=== PATIENT | female | born 1970 | race Caucasian/White ===

== ENCOUNTER → 2018-04-27 13:50 | Outpatient (CLI) | payer OTHER, SELFPAY | PROVIDERS: PCP Family Medicine; Visit Provider Family Medicine | DX: G56.00 Carpal tunnel syndrome, unspecified upper limb (principal) | CPT/HCPCS: 95886; 95911 ==

== ENCOUNTER → 2018-07-18 15:35 | Outpatient (CLI) | payer OTHER, SELFPAY ==
--- NOTE | 2018-07-18 | DI.MG.S_ITS ---
BILATERAL DIGITAL SCREENING MAMMOGRAM 3D/2D WITH CAD: 07/18/2018 CLINICAL: Routine screening. Family history of breast cancer. Comparison is made to exams dated: 05/09/2017 mammogram, 05/06/2016 mammogram, and 04/29/2016 mammogram - [facility]. The tissue of both breasts is heterogeneously dense. This may lower the sensitivity of mammography. Current study was also evaluated with a Computer Aided Detection (CAD) system. No significant masses, calcifications, or other findings are seen in either breast. There has been no significant interval change. IMPRESSION: NEGATIVE There is no mammographic evidence of malignancy. A 1 year screening mammogram is recommended. This exam was interpreted at Station ID: [id number]. NOTE: For mammograms, a report in lay terms will be sent to the patient. Approximately 15% of breast malignancies will not be visualized mammographically. In the management of a palpable breast mass, a negative mammogram must not discourage biopsy of a clinically suspicious lesion. Electronically Signed By: Maria Eugenia orona/inga:07/19/2018 10:41:00 copy to: Cameron Barrera letter sent: Normal Exam ACR BI-RADS Category 1: Negative 3341F
== END ==
PROVIDERS: PCP Family Medicine; Visit Provider Nurse Practitioner Family
DX: Z12.31 Encounter for screening mammogram for malignant neoplasm of breast (principal); Z80.3 Family history of malignant neoplasm of breast
CPT/HCPCS: 77063; 77067

== ENCOUNTER → 2019-01-30 13:09 | Outpatient (CLI) | payer OTHER, SELFPAY | PROVIDERS: PCP Family Medicine; Visit Provider Family Medicine | DX: R22.0 Localized swelling, mass and lump, head (principal) | CPT/HCPCS: 36415; 83520; 86160 ==

== ENCOUNTER → 2019-03-26 09:07 | Outpatient (CLI) | payer OTHER, SELFPAY ==
--- NOTE | 2019-03-26 | DI.MRI.S_ITS ---
PROCEDURE: MR HEAD/BRAIN WO/W CON INDICATIONS: Unspecified speech disturbances TECHNIQUE: Noncontrast axial T1 spin echo, axial T2 fast spin echo, sagittal and axial FLAIR, coronal T2 fast spin echo, axial gradient echo, axial diffusion and ADC through the brain. After the administration of contrast, axial and coronal 3D VIBE or T1 spin echo with fat saturation through the brain. COMPARISON: None. FINDINGS: Image quality: Excellent. CSF Spaces: Basal cisterns are patent. No extra-axial fluid collections. Ventricles are normal in size and shape. Brain: No midline shift. No intracranial bleeds or masses. No abnormal intracranial enhancement. The brainstem appears normal. Diffusion-weighted images demonstrate no acute ischemic insults. No chronic ischemic insults. Normal intravascular flow voids are present. Skull and face: Calvarial marrow is normal in signal. Orbits appear normal. Sinuses: Sinuses and mastoids appear clear. IMPRESSION: Unremarkable examination. No abnormal enhancement. No evidence of acute ischemia. Dictated by: Omega Cruz M.D. on 03/26/2019 at 10:05 Approved by: Omega Cruz M.D. on 03/26/2019 at 10:08
== END ==
PROVIDERS: PCP Family Medicine; Visit Provider Family Medicine
DX: R47.9 Unspecified speech disturbances (principal); R27.9 Unspecified lack of coordination
CPT/HCPCS: 70553; A9579

== ENCOUNTER → 2020-07-05 13:34 | Outpatient (CLI) | payer OTHER, SELFPAY ==
--- NOTE | 2020-07-05 | DI.MG.S_ITS ---
BILATERAL DIGITAL SCREENING MAMMOGRAM 3D/2D WITH CAD: 07/05/2020 CLINICAL: Routine screening. Family history of breast cancer. Comparison is made to exams dated: 07/18/2018 mammogram, 05/09/2017 mammogram, 09/07/2016 mammogram, and 04/29/2016 mammogram - [facility]. There are scattered fibroglandular elements in both breasts. Current study was also evaluated with a Computer Aided Detection (CAD) system. No significant masses, calcifications, or other findings are seen in either breast. There has been no significant interval change. IMPRESSION: NEGATIVE There is no mammographic evidence of malignancy. A 1 year screening mammogram is recommended. This exam was interpreted at Station ID: [id number]. NOTE: For mammograms, a report in lay terms will be sent to the patient. Approximately 15% of breast malignancies will not be visualized mammographically. In the management of a palpable breast mass, a negative mammogram must not discourage biopsy of a clinically suspicious lesion. Electronically Signed By: Valente lloyd/inga:07/07/2020 11:27:24 copy to: Cameron Barrera letter sent: Normal Exam ACR BI-RADS Category 1: Negative 3341F
== END ==
PROVIDERS: PCP Family Medicine; Referring Provider Family Medicine; Visit Provider Family Medicine
DX: Z12.31 Encounter for screening mammogram for malignant neoplasm of breast (principal); Z80.3 Family history of malignant neoplasm of breast
CPT/HCPCS: 77063; 77067

== ENCOUNTER → 2020-12-01 14:18 | Outpatient (CLI) | payer OTHER, SELFPAY ==
[2020-12-01] MEDS: COVID-19 VACC, Ad26(JANSSEN)/PF 0.5 ML IM (14:29)
== END ==
PROVIDERS: Visit Provider Internal Medicine
DX: Z23 Encounter for immunization (principal)
CPT/HCPCS: 0031A; 91303

== ENCOUNTER → 2021-08-21 17:34 | Outpatient (CLI) | payer OTHER, SELFPAY ==
--- NOTE | 2021-08-21 17:37 | DI.MG.S_ITS ---
BILATERAL DIGITAL SCREENING MAMMOGRAM 3D/2D WITH CAD: 08/21/2021 CLINICAL: Routine screening. Family history of breast cancer. Comparison is made to exams dated: 07/05/2020 mammogram, 07/18/2018 mammogram, and 05/09/2017 mammogram - [facility]. There are scattered fibroglandular elements in both breasts. Current study was also evaluated with a Computer Aided Detection (CAD) system. No significant masses, calcifications, or other findings are seen in either breast. There has been no significant interval change. IMPRESSION: NEGATIVE There is no mammographic evidence of malignancy. A 1 year screening mammogram is recommended. This exam was interpreted at Station ID: [id number]. NOTE: For mammograms, a report in lay terms will be sent to the patient. Approximately 15% of breast malignancies will not be visualized mammographically. In the management of a palpable breast mass, a negative mammogram must not discourage biopsy of a clinically suspicious lesion. Electronically Signed By: Paramjit Washington M.D., jr/inga:08/24/2021 09:14:01 copy to: Cameron Barrera letter sent: Normal Exam ACR BI-RADS Category 1: Negative 3341F
== END ==
PROVIDERS: PCP Family Medicine; Referring Provider Family Medicine; Visit Provider Family Medicine
DX: Z12.31 Encounter for screening mammogram for malignant neoplasm of breast (principal); Z80.3 Family history of malignant neoplasm of breast
CPT/HCPCS: 77063; 77067

== ENCOUNTER → 2022-10-16 10:50 | Outpatient (CLI) | payer OTHER, SELFPAY ==
--- NOTE | 2022-10-16 | DI.MG.S_ITS ---
BILATERAL DIGITAL SCREENING MAMMOGRAM 3D/2D WITH CAD: 10/16/2022 CLINICAL: Routine screening. Family history of breast cancer. Comparison is made to exams dated: 08/21/2021 mammogram, 07/05/2020 mammogram, and 07/18/2018 mammogram - [facility]. There are scattered areas of fibroglandular density in both breasts (category b / 25%-50% glandular tissue). Current study was also evaluated with a Computer Aided Detection (CAD) system. No significant masses, calcifications, or other findings are seen in either breast. There has been no significant interval change. IMPRESSION: NEGATIVE There is no mammographic evidence of malignancy. A 1 year screening mammogram is recommended. Based on the Tyrer Cuzick model (a risk assessment model) the patient's lifetime risk is 12.7% and her 10 year risk is 3.2%. According to the ACR, ACS, and NCCN guidelines, an annual breast MRI exam along with mammogram is recommended if the patient's lifetime risk is 20% or greater. This exam was interpreted at Station ID: [id number]. NOTE: For mammograms, a report in lay terms will be sent to the patient. Approximately 15% of breast malignancies will not be visualized mammographically. In the management of a palpable breast mass, a negative mammogram must not discourage biopsy of a clinically suspicious lesion. Electronically Signed By: Suyra estrada/inga:10/18/2022 02:12:47 copy to: Cameron Barrera letter sent: Normal Exam ACR BI-RADS Category 1: Negative 3341F
== END ==
PROVIDERS: PCP Family Medicine; Referring Provider Family Medicine; Visit Provider Family Medicine
DX: Z12.31 Encounter for screening mammogram for malignant neoplasm of breast (principal); Z80.3 Family history of malignant neoplasm of breast
CPT/HCPCS: 77063; 77067

== ENCOUNTER → 2023-11-12 12:58 | Outpatient (CLI) | payer OTHER, SELFPAY ==
--- NOTE | 2023-11-12 12:59 | DI.MG.S_ITS ---
BILATERAL DIGITAL SCREENING MAMMOGRAM 3D/2D WITH CAD: 11/12/2023 CLINICAL: Routine screening. Family history of breast cancer. Comparison is made to exams dated: 10/16/2022 mammogram, 08/21/2021 mammogram, and 07/05/2020 mammogram - [facility]. There are scattered areas of fibroglandular density in both breasts (category b / 25%-50% glandular tissue). Current study was also evaluated with a Computer Aided Detection (CAD) system. There are stable post surgical changes from bilateral reduction mammoplasty. No other significant masses, calcifications, or other findings are seen in either breast. IMPRESSION: BENIGN Status post bilateral reduction mammoplasty. No mammographic evidence of malignancy. A 1 year screening mammogram is recommended. Based on the Tyrer Cuzick model (a risk assessment model) the patient's lifetime risk is 12.6% and her 10 year risk is 3.3%. According to the ACR, ACS, and NCCN guidelines, an annual breast MRI exam along with mammogram is recommended if the patient's lifetime risk is 20% or greater. This exam was interpreted at Station ID: [id number]. NOTE: For mammograms, a report in lay terms will be sent to the patient. Approximately 15% of breast malignancies will not be visualized mammographically. In the management of a palpable breast mass, a negative mammogram must not discourage biopsy of a clinically suspicious lesion. Electronically Signed By: Rola De M.D., PH.D eb/:11/14/2023 10:40:14 copy to: Cameron Barrera letter sent: Normal Exam ACR BI-RADS Category 2: Benign Finding(s) 3342F
== END ==
LOC: MAMMO 12:58
PROVIDERS: PCP Family Medicine; Referring Provider Family Medicine; Visit Provider Family Medicine
DX: Z12.31 Encounter for screening mammogram for malignant neoplasm of breast (principal); Z80.3 Family history of malignant neoplasm of breast; R92.323 Mammographic fibroglandular density, bilateral breasts
CPT/HCPCS: 77063; 77067

== ENCOUNTER → 2024-02-10 10:48 | Outpatient (CLI) | payer OTHER, SELFPAY ==
--- NOTE | 2024-02-10 10:49 | DI.MRI.S_ITS ---
PROCEDURE: MR HEAD/BRAIN WO/W CON INDICATIONS: Other abnormalities of gait and mobility TECHNIQUE: Noncontrast axial T1 spin echo, axial T2 fast spin echo, sagittal and axial FLAIR, coronal T2 fast spin echo, axial gradient echo, axial diffusion and ADC through the brain. After the administration of contrast, axial and coronal and sagittal 3D VIBE or T1 spin echo with fat saturation through the brain. COMPARISON: [facility], MR, MR HEAD/BRAIN WO/W CON, 03/26/2019, 9:16. FINDINGS: Image quality: Excellent. CSF Spaces: Basal cisterns are patent. No extra-axial fluid collections. Ventricles are normal in size and shape except at the 4th ventricle which is chronically enlarged associated with previously identified and documented prominent cerebellar atrophy. Associated brainstem and upper cervical cord calibers are diminished, not worsened from the prior study 03/26/19.. Brain: No midline shift. No intracranial bleeds or masses. No abnormal intracranial enhancement. The brainstem appears at the lower limits of normal in caliber, as was previously the case. Diffusion-weighted images demonstrate no acute infarct. No chronic ischemic insults. Normal intravascular flow voids are present. The contrast-enhanced portion of the study shows no abnormal enhancement or vascular abnormality. Skull and face: Calvarial marrow is normal in signal. Orbits appear normal. Sinuses: Sinuses and mastoids appear clear. IMPRESSION: Chronic moderately prominent cerebellar and brainstem atrophy, without encephalomalacia focally. The appearance was previously documented in March of 2019 by a similar MRI without and with contrast, and has remained stable in appearance over time. Dictated by: Satish Delgado M.D. on 02/10/2024 at 13:14 Approved by: Satish Delgado M.D. on 02/10/2024 at 13:20
== END ==
PROVIDERS: Family Provider Family Medicine; PCP Family Medicine; Referring Provider Family Medicine; Visit Provider Family Medicine
DX: G31.9 Degenerative disease of nervous system, unspecified (principal); R26.89 Other abnormalities of gait and mobility; R47.9 Unspecified speech disturbances; R47.1 Dysarthria and anarthria
CPT/HCPCS: 70553; A9579

== ENCOUNTER 2024-08-08 17:00 | Outpatient (RCR) | payer OTHER, SELFPAY ==
--- NOTE | 2024-04-25 16:52 | ST.OPIE ---
Visit Care Team Role Provider Type Dipak Ravi MD Attending Provider Physician Family Provider Primary Care Provider Referring Provider Specialty: Family Practice Address: [address], [place], [address] Email: [email or web address] Speech-Language Pathology Initial Evaluation FICTION AND NONFICTION AUTHOR Adult Cognitive Linguistic Eval Start: 04/25/24 10:33 Freq: Status: Active Protocol: Document 04/25/24 10:34 MA (Rec: 04/25/24 10:36 JANINE [id number]) Adult Cognitive Linguistic Evaluation Session Time Visit Start Time 10:25 Visit Stop Time 11:05 Total Visit Minutes 40 Visit Information Visit Number Initial Eval Plan of Care Dates 04/25/24-07/26/24 Insurance Information Jacob Referral Referring Provider Dr. Ravi Reason for Referral Dysarthria Setting Assessment Location Outpatient Care Visit Type Note Type Initial evaluation Next Note Type Next Note Type Treatment Note Patient Information Identification Type Name Patient History Pt is a 53 year old female seen this date for speech evaluation d/t dx of dysarthria, which she states was dx about 4-5 years ago. She states she had a MRI completed in 2019, which revealed cerebellar atrophy, however has stabalized since then and has not changed. She reports onset of slurred speech began in 2019, however has not gotten worse. She states stress causes it to be worse. Yemeni is her first language, however she also speaks Somali and Togolese. She states no known cause for dysarthria and has had several tests done. She reports her brother was tested and it was found he has a small cerebellum with associated fine motor control issues. 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 She reports when she was to conduct big meetings she feels more pressure and more stress which causes morer slurring. She states nobody has told her they can't understand her, however have noticed the slurred speech. She lives alone and states when she isn't at work she communicates primarily through text or email. She reports her dad of Parkinson's disease, however that has been ruled out. She reports the slurred speech has cuased her to become more withdrawn and quiet. She denies any other past medical hx. She reports hx of anxiety, however has increased the past few months, which she thinks might be a side effect from taking Ozempic. Occupation Status Highschool psychologist Hearing Hearing Level Normal Vision Vision Status Impaired Comments Wears glasses Previous Therapy Previous Speech-Language Therapy No Assessment Oral Motor Examination Completed Yes Results Generalized labial and lingual weakness and reduced ROM. However, Pt is about 100% intelligible with occasional words difficult to understand given misarticulations. Informal Assessment Receptive Language Normal Yes Expressive Language Normal Yes Pragmatic Language Normal Yes Speech Normal No Speech Impairment(s) Imprecise articulation,Fast speech rate,Poor breath support Cognition Normal Yes Formal Assessment Results ST administered the Voice Handicap Index-10 (VHI) and cued Pt to change the word voice to speech and pertain the questionnaire to her speech deficits. Pt scored the following: Functional: 19 Physical: 15 Emotional: 17 Total: 51 Score of 51 indicates a severity rating of moderate, which is the level at which she feels her speech effects her daily life. FICTION AND NONFICTION AUTHOR Motor Speech Evaluation Start: 04/25/24 11:13 Freq: Status: Active Protocol: Document 04/25/24 11:13 JANINE (Rec: 04/25/24 11:14 JANINE [id number]) Motor Speech Evaluation Session Time Visit Start Time 10:25 Visit Stop Time 11:05 Total Visit Minutes 40 Visit Information Visit Number Initial Eval Plan of Care Dates 04/25/24-07/26/24 Insurance Information Jacob Setting Setting Outpatient Care Next Note Type Next Note Type Treatment Note Patient History Source: [employer] ([facility]). Patient History Pt is a 53 year old female seen this date for speech evaluation d/t dx of dysarthria, which she states was dx about 4-5 years ago. She states she had a MRI completed in 2019, which revealed cerebellar atrophy, however has stabalized since then and has not changed. She reports onset of slurred speech began in 2019, however has not gotten worse. She states stress causes it to be worse. Yemeni is her first language, however she also speaks Somali and Togolese. She states no known cause for dysarthria and has had several tests done. She reports her brother was tested and it was found he has a small cerebellum with associated fine motor control issues. 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 She reports when she was to conduct big meetings she feels more pressure and more stress which causes morer slurring. She states nobody has told her they can't understand her, however have noticed the slurred speech. She lives alone and states when she isn't at work she communicates primarily through text or email. She reports her dad of Parkinson's disease, however that has been ruled out. She reports the slurred speech has cuased her to become more withdrawn and quiet. She denies any other past medical hx. She reports hx of anxiety, however has increased the past few months, which she thinks might be a side effect from taking Ozempic. Referral Referring Physician Dr. Ravi Reason for Referral Dysarthria Mental Status Mental Status Alert,Responsive,Cooperative Oral Motor Lips Function Mild Impairment Tongue Function Mild Impairment Jaw Function WFL Respiration/Phonation Tools Observations Pt reports occasionally running out of breath when speaking Conversation Function Mildly Impaired Loudness WFL Diadochokinetic Rates Speech Intelligibility Phoneme Severity WFL Word Severity WFL Sentence Severity WFL Conversation Severity Mildly Impaired Awareness/Strategy Use Description Type of awareness/use Uses intermittently Findings Details Motor Speech Function Mild Impairment Type of Impairment Dysarthria Assessment Details Assessment ST administered the Voice Handicap Index-10 (VHI) and cued Pt to change the word voice to speech and pertain the questionnaire to her speech deficits. Pt scored the following: Functional: 19 Physical: 15 Emotional: 17 Total: 51 Score of 51 indicates a severity rating of moderate, which is the level at which she feels her speech effects her daily life. Pt appears about 100% intelligible at the conversation level, however speech is characterized by slurred speech with misarticulations. She reports she tries to slow down and over enunciate but needs to do it more, as well as taking breaths while talking. She reports she would like to learn and practice utilizing speaking compensatory strategies. Prognosis Rehabilitation Potential Excellent Recommendations Treatment Recommended Yes Frequency 1x/week Duration 3 months Therapy Recommendations Oral motor exercises, dysarthriai speaking strategies Short Term Goals STG 1: Pt will participate in oral motor speech tasks to improve lingual and labial strength, ROM and motility for articulation with min cues. STG 2: Pt will utilize compensatory strategies of reduced rate, over articulation, and increased loudness with min cues. Snf Goals LTG1 Pt will improve intelligibility of speech for functional communication. Patient/Family Education Education Described results of evaluation,Patient Understanding
--- NOTE | 2024-04-25 16:52 | ST.OPPOC ---
Physical, Occupational & Speech Therapy At [facility] Visit Care Team Role Provider Type Dipak Ravi MD Attending Provider Physician Family Provider Primary Care Provider Referring Provider Address: [address], [place], [address] Speech Pathology Plan of Care Plan of Care Dates 04/25/24-07/26/[address] Ravi Patient History Pt is a 53 year old female seen this date for speech evaluation d/t dx of dysarthria, which she states was dx about 4-5 years ago. She states she had a MRI completed in 2019, which revealed cerebellar atrophy, however has stabalized since then and has not changed. She reports onset of slurred speech began in 2019, however has not gotten worse. She states stress causes it to be worse. Bruneian is her first language, however she also speaks Maltese and Romanian. She states no known cause for dysarthria and has had several tests done. She reports her brother was tested and it was found he has a small cerebellum with associated fine motor control issues. 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 She reports when she was to conduct big meetings she feels more pressure and more stress which causes morer slurring. She states nobody has told her they can't understand her, however have noticed the slurred speech. She lives alone and states when she isn't at work she communicates primarily through text or email. She reports her dad of Parkinson's disease, however that has been ruled out. She reports the slurred speech has cuased her to become more withdrawn and quiet. She denies any other past medical hx. She reports hx of anxiety , however has increased the past few months, which she thinks might be a side effect from taking Ozempic. Short Term Goals STG 1: Pt will participate in oral motor speech tasks to improve lingual and labial strength, ROM and motility for articulation with min cues. STG 2: Pt will utilize compensatory strategies of reduced rate, over articulation, and increased loudness with min cues. Grizzly Worker Goals LTG1 Pt will improve intelligibility of speech for functional communication. Comment: Electronically Signed by: ADRIEL Colindres 04/25/24 [id number] If you are in agreement with this Plan of Care, please return a signed and dated copy. I have reviewed this Plan of Care and certify that the skilled therapy services above are required to meet the patient?s needs. Physician Signature Date Printed Name and Credentials Clinical Instructor Signature Printed Name and Credentials
--- NOTE | 2024-05-02 11:06 | ST.OPTN ---
Visit Care Team Role Provider Type Dipak Ravi MD Attending Provider Physician Family Provider Primary Care Provider Referring Provider Address: [address], [place], [address] NUCLEAR MONITORING TECHNICIAN Treatment Note NUCLEAR MONITORING TECHNICIAN Treatment Note Start: 05/02/24 10:52 Freq: Status: Active Protocol: Document 05/02/24 10:53 JANINE (Rec: 05/02/24 11:06 NM [id number]) Speech Pathology Treatment Note Session Time Visit Start Time 10:30 Visit Stop Time 11:00 Total Visit Minutes 30 Visit Information Visit Number 2 Plan of Care Dates 04/25/24-07/26/24 Setting Treatment Setting Outpatient Care Next Note Type Next Note Type Treatment Note General Information Patient History Pt is a 53 year old female seen this date for speech evaluation d/t dx of dysarthria, which she states was dx about 4-5 years ago. She states she had a MRI completed in 2019, which revealed cerebellar atrophy, however has stabalized since then and has not changed. She reports onset of slurred speech began in 2019, however has not gotten worse. She states stress causes it to be worse. Jamaican is her first language, however she also speaks Maori and Guatemalan. She states no known cause for dysarthria and has had several tests done. She reports her brother was tested and it was found he has a small cerebellum with associated fine motor control issues. 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 She reports when she was to conduct big meetings she feels more pressure and more stress which causes morer slurring. She states nobody has told her they can't understand her, however have noticed the slurred speech. She lives alone and states when she isn't at work she communicates primarily through text or email. She reports her dad of Parkinson's disease, however that has been ruled out. She reports the slurred speech has cuased her to become more withdrawn and quiet. She denies any other past medical hx. She reports hx of anxiety, however has increased the past few months, which she thinks might be a side effect from taking Ozempic. Subjective Observations/Patient Presentation Pt arrived to therapy on time with exercises. Objective Short Term Goals STG 1: Pt will participate in oral motor speech tasks to improve lingual and labial strength, ROM and motility for articulation with min cues. STG 2: Pt will utilize compensatory strategies of reduced rate, over articulation, and increased loudness with min cues. Correction Goals LTG1 Pt will improve intelligibility of speech for functional communication. Treatment Activities Oral motor exercises, speaking strategies Assessment Patient Response to Treatment Excellent Rehab Potential Excellent Impairments Identified Speech Progress Towards Goals Excellent Progress Assessment of Improvement Pt brought in exercises provided during last session, which included oral motor exericses and dysarthria speaking strategies. Pt reports a noticable change with her speech after doing oral motor exercises and says they seem to be really helping . She also states she has been focusing on utilizing the dysarthria speaking strategies more but will continue to practice. She states she benefits from over articulating and slowing rate of speech. ST facilitated conversation in regards to going forward in therapy. Pt reports she would like to come in once a month for a check in on her speech and completion of exercises. ST agrees and assisted Pt with scheduling once a month. ST recommends Pt continue oral motor exercises 2-3x/day 10x each and utilize dysarthria speaking strategies. Pt also requested ST write a letter to her HR department just stating why she is receiving speech therapy. ST to f/u with Pt in once month. Plan Provided Patient/Caregiver Instruction Home Exercise Program,Plan of Care,Questions/Concerns
--- NOTE | 2024-06-06 17:09 | ST.OPTN ---
Visit Care Team Role Provider Type Dipak Ravi MD Attending Provider Physician Family Provider Primary Care Provider Referring Provider Address: [address], [place], [address] 411 DIRECTORY ASSISTANCE OPERATOR Treatment Note 411 DIRECTORY ASSISTANCE OPERATOR Treatment Note Start: 05/02/24 10:52 Freq: Status: Active Protocol: Document 06/06/24 17:03 JANINE (Rec: 06/06/24 17:09 [place] [id number]) Speech Pathology Treatment Note Session Time Visit Start Time 16:45 Visit Stop Time 17:15 Total Visit Minutes 30 Visit Information Visit Number 3 Plan of Care Dates 04/25/24-07/26/24 Setting Treatment Setting Outpatient Care Next Note Type Next Note Type Treatment Note General Information Patient History Pt is a 53 year old female seen this date for speech evaluation d/t dx of dysarthria, which she states was dx about 4-5 years ago. She states she had a MRI completed in 2019, which revealed cerebellar atrophy, however has stabalized since then and has not changed. She reports onset of slurred speech began in 2019, however has not gotten worse. She states stress causes it to be worse. Cymraes is her first language, however she also speaks Kiswahili and Filipino. She states no known cause for dysarthria and has had several tests done. She reports her brother was tested and it was found he has a small cerebellum with associated fine motor control issues. 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 She reports when she was to conduct big meetings she feels more pressure and more stress which causes morer slurring. She states nobody has told her they can't understand her, however have noticed the slurred speech. She lives alone and states when she isn't at work she communicates primarily through text or email. She reports her dad of Parkinson's disease, however that has been ruled out. She reports the slurred speech has cuased her to become more withdrawn and quiet. She denies any other past medical hx. She reports hx of anxiety, however has increased the past few months, which she thinks might be a side effect from taking Ozempic. Subjective Observations/Patient Presentation Pt arrived to therapy on time. Objective Short Term Goals STG 1: Pt will participate in oral motor speech tasks to improve lingual and labial strength, ROM and motility for articulation with min cues. STG 2: Pt will utilize compensatory strategies of reduced rate, over articulation, and increased loudness with min cues. Garden Worker Goals LTG1 Pt will improve intelligibility of speech for functional communication. Treatment Activities Oral motor exercises, speaking strategies Assessment Patient Response to Treatment Excellent Rehab Potential Excellent Impairments Identified Speech Progress Towards Goals Excellent Progress Assessment of Improvement Pt reports she has been doing her oral motor exercises, however does not always remember to utilize speaking strategies. She states her speech is it's worse when she is stressed and rushing around at work. She reports most difficulties when communicating in front of a group during meetings. ST recommended Pt continue to utilize speaking strategies, such as over-articulation and slow rate and taking breaths when speaking for increased intelligibility. Pt appeared about 90-100% intelligible during session. ST also recommended she keep reminders of speaking strategies at her desk at work or on her phone to recall to use them. Pt reports she would like to come in once a month for a check in on her speech and completion of exercises. ST recommends Pt continue oral motor exercises 2-3x/day 10x each and utilize dysarthria speaking strategies. ST to f/ u with Pt in once month. Plan Provided Patient/Caregiver Instruction Home Exercise Program,Plan of Care,Questions/Concerns
--- NOTE | 2024-08-08 17:23 | ST.OPTN ---
Visit Care Team Role Provider Type Dipak Ravi MD Attending Provider Physician Family Provider Primary Care Provider Referring Provider Address: [address], [place], [address] SALES AND MERCHANDISING ASSOCIATE Treatment Note SALES AND MERCHANDISING ASSOCIATE Treatment Note Start: 05/02/24 10:52 Freq: Status: Active Protocol: Document 08/08/24 17:09 CT (Rec: 08/08/24 17:23 CT [id number]) Speech Pathology Treatment Note Session Time Visit Start Time 16:56 Visit Stop Time 17:20 Total Visit Minutes 24 Visit Information Visit Number 4 Plan of Care Dates 04/25/24-07/26/24 Setting Treatment Setting Outpatient Care Next Note Type Next Note Type Treatment Note General Information Patient History Pt is a 53 year old female seen this date for speech evaluation d/t dx of dysarthria, which she states was dx about 4-5 years ago. She states she had a MRI completed in 2019, which revealed cerebellar atrophy, however has stabalized since then and has not changed. She reports onset of slurred speech began in 2019, however has not gotten worse. She states stress causes it to be worse. Nicaraguan is her first language, however she also speaks Frisian and Marshallese. She states no known cause for dysarthria and has had several tests done. She reports her brother was tested and it was found he has a small cerebellum with associated fine motor control issues. 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 She reports when she was to conduct big meetings she feels more pressure and more stress which causes morer slurring. She states nobody has told her they can't understand her, however have noticed the slurred speech. She lives alone and states when she isn't at work she communicates primarily through text or email. She reports her dad of Parkinson's disease, however that has been ruled out. She reports the slurred speech has cuased her to become more withdrawn and quiet. She denies any other past medical hx. She reports hx of anxiety, however has increased the past few months, which she thinks might be a side effect from taking Ozempic. Subjective Observations/Patient Presentation Pt arrived to therapy on time. Objective Short Term Goals STG 1: Pt will participate in oral motor speech tasks to improve lingual and labial strength, ROM and motility for articulation with min cues.- MET STG 2: Pt will utilize compensatory strategies of reduced rate, over articulation, and increased loudness with min cues.- MET Retirement Goals LTG1 Pt will improve intelligibility of speech for functional communication. - MET Treatment Activities Dysarthria speaking strategies , conversation in regards to discharge from therapy Assessment Patient Response to Treatment Excellent Rehab Potential Excellent Impairments Identified Speech Progress Towards Goals Excellent Progress,Appropriate for Discharge Assessment of Improvement Pt reports she believes her speech has improved and has been utilizing speaking compensatory strategies, such as slowing down and over articulating. She states it doesn't bother her when people occasionally ask her to repeat herself. She reports decreased intelligibility when she is stressed, however also states that has improved. Pt reports she has also been doing oral motor exercises. ST recommends Pt be discharged from this date d/t Pt with reported improvements in speech and independent with use of compensatory strategies . ST recommended Pt return to therapy if changes in speech occur and to continue utilizing compensatory speaking strategies and completing oral motor exercises. Pt verbalized understanding. Reviewed with Patient Goals,Progress Being Made,Home Exercise Program Plan Frequency of Treatment No Further Therapy Provided Patient/Caregiver Instruction Home Exercise Program,Plan of Care,Questions/Concerns
--- NOTE | 2024-08-13 15:03 | ST.OPPOC ---
Physical, Occupational & Speech Therapy At [facility] Visit Care Team Role Provider Type Dipak Ravi MD Attending Provider Physician Family Provider Primary Care Provider Referring Provider Address: [address], [place], [address] Speech Pathology Plan of Care Plan of Care Dates 07/27/24-08/08/[address] Ravi Patient History Pt is a 53 year old female seen this date for speech evaluation d/t dx of dysarthria, which she states was dx about 4-5 years ago. She states she had a MRI completed in 2019, which revealed cerebellar atrophy, however has stabalized since then and has not changed. She reports onset of slurred speech began in 2019, however has not gotten worse. She states stress causes it to be worse. Kuwaiti is her first language, however she also speaks Slovenian and Yemeni. She states no known cause for dysarthria and has had several tests done. She reports her brother was tested and it was found he has a small cerebellum with associated fine motor control issues. 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 She reports when she was to conduct big meetings she feels more pressure and more stress which causes morer slurring. She states nobody has told her they can't understand her, however have noticed the slurred speech. She lives alone and states when she isn't at work she communicates primarily through text or email. She reports her dad of Parkinson's disease, however that has been ruled out. She reports the slurred speech has cuased her to become more withdrawn and quiet. She denies any other past medical hx. She reports hx of anxiety , however has increased the past few months, which she thinks might be a side effect from taking Ozempic. Impairments Identified Speech Progress Towards Goals Excellent Progress,Appropriate for Discharge Short Term Goals STG 1: Pt will participate in oral motor speech tasks to improve lingual and labial strength, ROM and motility for articulation with min cues. - MET STG 2: Pt will utilize compensatory strategies of reduced rate, over articulation, and increased loudness with min cues.- MET Detention Goals LTG1 Pt will improve intelligibility of speech for functional communication. - MET Comment: Electronically Signed by: ADRIEL Colindres 08/13/24 3824 If you are in agreement with this Plan of Care, please return a signed and dated copy. I have reviewed this Plan of Care and certify that the skilled therapy services above are required to meet the patient?s needs. Physician Signature Date Printed Name and Credentials Clinical Instructor Signature Printed Name and Credentials
== END 2024-09-03 13:38 | disposition home or self-care (01) ==
LOC: SP 17:00
PROVIDERS: Family Provider Family Medicine; PCP Family Medicine; Referring Provider Family Medicine; Visit Provider Family Medicine
DX: R47.1 Dysarthria and anarthria (principal); R47.9 Unspecified speech disturbances; G31.9 Degenerative disease of nervous system, unspecified; R26.89 Other abnormalities of gait and mobility
CPT/HCPCS: 92507; 92523

== ENCOUNTER 2024-10-11 09:02 | Day surgery (SDC) | payer OTHER, SELFPAY ==
[2024-10-11 09:25] VITALS: BP 127/76; PULSE 93; RESP 16; TEMP 36.4; O2SAT 95
--- NOTE | 2024-10-11 10:05 | PM.HP.IH.1 ---
History of Present Illness History of Present Illness Date Patient Seen: 10/11/24 Time Patient Seen: 10:05 Chief complaint: Colonoscopy Narrative: Lalitha is a 54-year-old woman here for colonoscopy. She has never had 1 before. No family history of colon cancer. [facility] Social History Smoking Status: Never smoker alcohol intake: current Meds Home Medications and Allergies Home Medications Medication Instructions Recorded Confirmed Type peg 3350-electrolytes 236 240 ml PO Q10M #4,000 mL 09/05/24 Rx gram-22.74 gram-6.74 gram-5.86 gram solution (Golytely) semaglutide (weight loss) 1 mg/0.5 1 mg SUBCUT 10/11/24 History mL subcutaneous pen injector Allergies Allergy/AdvReac Type Severity Reaction Status Date / Time No Known Drug Allergies Allergy Verified 10/11/24 09:23 Exam Vital Signs (past 8 hours): - 10/11/24 09:25 Temperature 97.5 F L Pulse Rate 93 H Respiratory Rate 16 Blood Pressure 127/76 Pulse Oximetry 95 Oxygen Delivery Method Room Air Oxygen Delivery Method Room Air Const General: No acute distress Resp Effort & Inspection: normal respiratory effort Assessment & Plan Assessment and plan (1) Colon cancer screening: Status: Acute Plan Colonoscopy Time-Based Coding :: [TOTAL MINUTES] spent with patient and on the chart (including review of chart, obtaining history, exam, reviewing outside data, placing orders, documenting exam and treatment plan, and counseling patient) on [DATE]. PROFEE Direct Service Provider Document charge(s): No
[2024-10-11 10:50] VITALS: BP 110/54; PULSE 97; RESP 12; TEMP 36.2; O2SAT 99
--- NOTE | 2024-10-11 10:52 | PM.OP.COLON ---
Operative Date/Time/Diagnoses Date of procedure: 10/11/24 Time of procedure: 10:52 Pre-op diagnosis: Colon cancer screening Post-op diagnosis: same Procedure & Clinicians Study performed: Colonoscopy Same procedure as scheduled: Yes Surgeon: Brady Katz Procedure Notes Procedure in detail: Surgeon: Brady Katz MD Anesthesia: Bria Vieira MD Procedure: The patient was brought to the endoscopy suite, placed in left lateral decubitus position. The patient was connected to monitoring devices. A time-out was performed. Sedation was administered. Once the patient was adequately sedated, a digital rectal exam was performed and was normal. The scope was then inserted and advanced to the cecum where the appendiceal orifice was identified and photographed. The scope was then slowly withdrawn over greater than 6 minutes. The mucosa was thoroughly inspected. No abnormalities were found. The scope was retroflexed in the rectum. The scope was straightened and removed. The patient was awakened and brought to recovery. Scope withdrawal time: 6 minute Sedation time: 23 minute EBL: 0 Findings: Normal colon Post-procedure Recommendations: Colonoscopy in 10 years Disposition: PACU
[2024-10-11 10:54] VITALS: BP 124/78; PULSE 91; RESP 15; O2SAT 100
[2024-10-11] MEDS: SODIUM CHLORIDE 0.9% 1,000 ML 84 ML IV (11:02)
[2024-10-11 11:06] VITALS: BP 132/88; PULSE 90; RESP 14; O2SAT 100
== END 2024-10-11 11:13 | disposition home or self-care (01) ==
PROVIDERS: Family Provider Family Medicine; PCP Family Medicine; Referring Provider Surgery; Visit Provider Surgery
PROC: 0DJD8ZZ Inspection of Lower Intestinal Tract, Via Natural or Artificial Opening Endoscopic (ICD-10-PCS; CPT 45378; principal; 2024-10-11 10:00)
DX: Z12.11 Encounter for screening for malignant neoplasm of colon (principal); E66.9 Obesity, unspecified; Z68.35 Body mass index [BMI] 35.0-35.9, adult
CPT/HCPCS: G0121; J2704; J3010

== ENCOUNTER → 2025-01-03 17:46 | Outpatient (CLI) | payer OTHER, SELFPAY ==
--- NOTE | 2025-01-03 17:49 | DI.MG.S_ITS ---
MM screening mammo BI: 01/03/2025. BI-RADS: 1 CLINICAL: 54-year old female for bilateral screening mammogram. Tyrer-Cuzick lifetime risk of 12.3%. No personal or first-degree family history of breast cancer. Current reported family history of breast cancer: maternal grandmother. The patient is status-post reduction mammoplasty. PRIOR EXAMS 11/12/2023, 10/16/2022, 08/21/2021, 07/05/2020, 07/18/2018, 05/09/2017, 09/07/2016, 05/06/2016, 04/29/2016. MAMMOGRAPHY TECHNIQUE: 2D and 3D (tomosynthesis) digital mammographic views obtained, with additional images as needed for full coverage. Current study was also evaluated with a Computer Aided Detection (CAD) system. DENSITY B. There are scattered areas of fibroglandular density. MAMMOGRAPHY FINDINGS Bilateral: No suspicious mass, asymmetry, microcalcification, or other abnormality seen. No significant change from comparison. IMPRESSION: * No evidence of malignancy. RECOMMENDATIONS Bilateral * Annual screening mammography. OVERALL ASSESSMENT CATEGORY BI-RADS-1: Negative. The [employer] recommends annual screening mammography beginning at age 40 for women with average risk of breast cancer. ELECTRONICALLY SIGNED: Lesia Chapa M.D. on 01/04/2025 at 01:43:28 PM PT Interpreting Station ID: [id number]
== END ==
PROVIDERS: Family Provider Family Medicine; PCP Family Medicine; Referring Provider Family Medicine; Visit Provider Family Medicine
DX: Z12.31 Encounter for screening mammogram for malignant neoplasm of breast (principal); Z80.3 Family history of malignant neoplasm of breast
CPT/HCPCS: 77063; 77067